=== PATIENT | female | born 1970 | race American Indian/Alaskan Native ===

== ENCOUNTER 2017-03-27 09:57 | Outpatient (CLI) | payer BC ==
--- NOTE | 2017-03-27 13:03 | Mammography Report ---
BILATERAL DIGITAL DIAGNOSTIC MAMMOGRAM with CAD and LEFT BREAST ULTRASOUND: 03/27/17 CLINICAL: Followup left breast mass. The patient failed to return in a timely manner after a 07/15/16 mammogram. COMPARISON:07/15/16 FINDINGS: The breasts are heterogeneously dense, which may obscure small masses.Stable left inner circumscribed 2.3 cm mass with a mild lobular margin. No other mass. No architectural distortion or suspicious calcifications. The right breast is negative. Ultrasound of the left breast demonstrated an oval solid heterogeneous hypoechoic mass at 10 o'clock 1 cm from the nipple. It has a mild lobular margin and correlates with the mammographic mass. IMPRESSION: Stable probably benign 2.3 cm left breast mass. BI-RADS CATEGORY: 3 - - Probably Benign RECOMMENDATION: Six month followup left breast ultrasound. ACR BI-RADS MAMMOGRAPHIC CODES: 0 = Needs additional imaging evaluation; 1 = Negative; 2 = Benign; 3 = Probably benign; 4 = Suspicious; 5 = Malignant; 6 = Known biopsy-proven malignancy COMMENT: 1. Dense breast tissue, i.e., adenosis, fibrocystic changes, etc., may obscure an underlying neoplasm. 2. Approximately 10% of cancers are not detected with mammography. 3. A negative mammography report should not delay biopsy if a clinically suspicious mass is present. COMMENT: Patient follow-up letters are generated by our [employer] application.
== END 2017-03-27 09:58 | disposition home or self-care (01) ==
LOC: SPVWC 09:57
PROVIDERS: ATTEND Internal Medicine
DX: N63 Unspecified lump in breast (principal)
CPT/HCPCS: 76642; G0204; 77066

== ENCOUNTER 2017-09-29 14:12 | Outpatient (CLI) | payer BC ==
--- NOTE | 2017-09-29 16:47 | Ultrasound Report ---
LEFT DIGITAL DIAGNOSTIC MAMMOGRAM with CAD and LEFT BREAST ULTRASOUND: 09/29/17 14:12:00 CLINICAL: Followup of a probably benign left breast mass. COMPARISON:03/27/17 and 07/15/16 studies FINDINGS: The breast is heterogeneously dense, which may obscure small masses. The previously described oval circumscribed inner mass is stable in size and appearance. It measures 2.2 cm maximum and this is unchanged. No new mass, architectural distortion or suspicious calcifications. Ultrasound of the left breast demonstrated a stable oval solid heterogeneous hypoechoic mass at 10 o'clock 1 cm from the nipple. It measures 2.0 x 1.3 x 1.4 cm IMPRESSION: A stable probably benign 2.2 cm left breast mass at 10 o'clock. BI-RADS CATEGORY: 3 - - Probably Benign RECOMMENDATION: Followup left breast ultrasound in June 2018 to complete a two-year followup of the mass. ACR BI-RADS MAMMOGRAPHIC CODES: 0 = Needs additional imaging evaluation; 1 = Negative; 2 = Benign; 3 = Probably benign; 4 = Suspicious; 5 = Malignant; 6 = Known biopsy-proven malignancy COMMENT: 1. Dense breast tissue, i.e., adenosis, fibrocystic changes, etc., may obscure an underlying neoplasm. 2. Approximately 10% of cancers are not detected with mammography. 3. A negative mammography report should not delay biopsy if a clinically suspicious mass is present. COMMENT: Patient follow-up letters are generated by our [employer] application.
== END 2017-09-29 14:13 | disposition home or self-care (01) ==
LOC: SPVWC 14:12
PROVIDERS: ATTEND Internal Medicine
DX: N63.20 Unspecified lump in the left breast, unspecified quadrant (principal); R92.8 Other abnormal and inconclusive findings on diagnostic imaging of breast
CPT/HCPCS: 77067